=== PATIENT | male | born 1970 | race Caucasian/White ===

== ENCOUNTER 2019-02-16 06:24 | Day surgery (SDC) | payer OTHER ==
[~2019-02-16] VITALS: Ht 165.1 cm; Wt 99.8 kg
[2019-02-16] MEDS ORDERED: LIDOCAINE 2% 100 MG/5 ML UJET TP ONE (07:44)
[2019-02-16] MEDS ORDERED: fentaNYL 0.05 MG/ML VIAL ONE (07:44)
[2019-02-16] MEDS ORDERED: fentaNYL 0.05 MG/ML VIAL IVP ONE (09:10)
== END 2019-02-16 09:15 | disposition home or self-care (01) ==
LOC: MMU 06:24 → MDS 06:24
PROVIDERS: ATTEND Internal Medicine Gastroenterology
DX: Z12.11 Encounter for screening for malignant neoplasm of colon (principal); D12.3 Benign neoplasm of transverse colon; K57.30 Diverticulosis of large intestine without perforation or abscess without bleeding; E66.9 Obesity, unspecified; Z79.899 Other long term (current) drug therapy; Z68.37 Body mass index [BMI] 37.0-37.9, adult
CPT/HCPCS: 45385; J3010